=== PATIENT | female | born 1990 | race Two or more races ===

== ENCOUNTER 2024-05-19 17:46 | Emergency (ER) | payer MEDICAID, OTHER ==
[~2024-05-19] VITALS: Ht 165.1 cm; Wt 69.9 kg
[2024-05-19 18:02] VITALS: BP 122/79; PULSE 92; RESP 16; TEMP 98.8; O2SAT 97
[2024-05-19] MEDS ORDERED: GABA-1250 PO (19:25)
[2024-05-19] MEDS ORDERED: ACET500T58 PO (19:25)
[2024-05-19] MEDS ORDERED: ACYC400T16 PO (19:25)
== END 2024-05-19 19:25 | disposition home or self-care (01) ==
LOC: ER 17:46
DX: B02.9 Zoster without complications (principal); Z79.899 Other long term (current) drug therapy